=== PATIENT | male | born 1955 | race Caucasian/White ===

== ENCOUNTER 2016-06-11 06:20 | Day surgery (SDC) | payer BC ==
[2016-05-30 08:16] VITALS: BMI 32.5
[2016-06-11] MEDS ORDERED: IV FLUID CONTINUATION 900 ML IV ONE (07:52)
[2016-06-11] MEDS ORDERED: HEPARIN SODIUM (1,000 UNIT/ML) 1,000 UNIT in SODIUM CHLORIDE 0.9% 1,000 ML IRRIGATION ONE (08:10)
[2016-06-11] MEDS ORDERED: HEPARIN SODIUM,PORCINE 10,000 UNIT/ML 1 ML VIAL ONE (08:10)
[2016-06-11] MEDS ORDERED: HEPARIN SODIUM,PORCINE/D5W PMX 25,000 UNIT in DEXTROSE/WATER 1 500ML.BAG IV ONE (08:10)
[2016-06-11] MEDS ORDERED: fentaNYL (PF) 50 MCG/ML 2 ML AMP ONE (08:10)
[2016-06-11] MEDS ORDERED: FUROSEMIDE 10 MG/ML 2 ML VIAL ONE (08:10)
[2016-06-11] MEDS ORDERED: PROPOFOL 10 MG/ML 20 ML VIAL IV ONE (08:10)
[2016-06-11] MEDS ORDERED: ISOPROTERENOL 250 MCG/1.25 ML SYR IV ONE (08:10)
[2016-06-11] MEDS ORDERED: HEPARIN SODIUM,PORCINE 5,000 UNIT/ML 1 ML VIAL ONE (08:10)
[2016-06-11] MEDS ORDERED: PHENYLEPHRINE-0.9% NACL SYG 1 MG/10 ML SYRINGE ONE (08:10)
[2016-06-11] MEDS ORDERED: PROTAMINE SULFATE 10 MG/ML 5 ML VIAL IV ONE (08:10)
[2016-06-11] MEDS ORDERED: HEPARIN SODIUM 1,000 UNIT/ML VIAL ONE (08:10)
[2016-06-11] MEDS ORDERED: MIDAZOLAM 2 MG/2 ML VIAL ONE (08:10)
[2016-06-11] MEDS ORDERED: LIDOCAINE 2% INJ 20 MG/ML SQ ONE (08:46)
[2016-06-11] MEDS ORDERED: IOHEXOL 350 MG/ML 50ML BOTTLE INJ ONE (13:12)
[2016-06-11] MEDS ORDERED: SODIUM CHLORIDE 0.9% 1,000 ML IV ONE (13:18)
[2016-06-11] MEDS ORDERED: ACETAMINOPHEN TAB 325 MG TAB PO PRN (13:32)
[2016-06-11] MEDS ORDERED: HYDROcodone/APAP 5-325MG 1 EACH TAB PO PRN (13:32)
[2016-06-11] MEDS ORDERED: ACETAMINOPHEN IV (For NPO) 1,000 MG in EMPTY BAG 1 BAG IVPB ONE (13:32)
--- NOTE | 2016-06-11 14:10 | LTR ---
June 11, 2016 RE: Seven King Leann Dear Dr. Taylor; I had the pleasure of seeing Mr. Seven King in electrophysiology in followup. As you know, Seven has sustained ventricular tachycardia with severe cardiomyopathy. His LV function has now normalized but at EP study, despite amiodarone, he had easily inducible ventricular tachycardia. This was a focal VT from the lateral wall of the left ventricle and he underwent successful ablation and the tachycardia was rendered noninducible. I will continue amiodarone at 100 mg a day for a month and then reduce it down to 50 mg a day for 3 months and then discontinue amiodarone. This was a deep focus in the ventricular wall, but we were able to render it noninducible with ablation. Thank you for entrusting me with the care of your patient. Warm regards. Sincerely, KEIRA SHAH MD
--- NOTE | 2016-06-11 14:34 | CE ---
This is a 60-year-old male patient who was diagnosed with severe nonischemic cardiomyopathy several months back and he also presented with frequent runs of nonsustained ventricular tachycardia. His ejection fraction was 15% to 20%. He was started on oral amiodarone which is gradually being tapered off. He was placed on appropriate heart failure medications and coronary angiography revealed normal coronary arteries. Subsequently, a cardiac MRI was performed, which did not reveal any evidence for delayed enhancement. By the time he had the MRI done, his ejection fraction had already improved to about 40% to 45%. He was brought in for an EP study and ablation for ablation of ventricular tachycardia. Amiodarone dose was reduced down to 200 mg a day. Patient was brought to the EP lab in a fasting state. Written informed consent was obtained prior to the procedure. Both groins were prepped and draped as per protocol and a venous sheath was placed in the left femoral vein and 2 venous sheaths in the right femoral vein. Later on, an 8 [place] sheath was placed in the right femoral artery for continuous hemodynamic monitoring and sampling during mapping and ablation for VT. Sinus cycle length 998 ms, W[place] interval 194 ms, QRS 133 ms, QT 472 ms, AH interval 103 ms, HV interval 56 ms. Sinus node recovery times are 600, 500 and 400 ms, were 1040, 1449 and 1430 ms. Corresponding corrected sinus node recovery times were within normal limits. No evidence for delta waves. No slow pathway conduction. AV node Wenckebach block 490 ms. No VA conduction at a paced cycle length of 800 ms. Atrial extrastimulation was performed up to double extrastimuli. AV node ERP 600/380 ms, ventricular ERP 600/230 ms. Burst stimulation was performed. Extrastimulation up to double extrastimuli was performed, but only PVCs are noted. The patient had 2 spontaneous PVCs: One from the RVOT and the second was from the RV body; however, he had no spontaneous nonsustained VT. Isuprel was started and burst stimulation was performed. Sustained VT from the left ventricle was induced with burst stimulation at 230 ms on Isuprel. This is a right bundle block-like morphology; upright QRS in the precordial leads, upright QRS in all the inferior leads and negatively-oriented QRS in lead I and aVL consistent with lateral wall VT. Therefore, first intracardiac echocardiography was performed. The right ventricle was identified. The aortic root was identified and tagged. Anatomic 3-D mapping of the LV was performed. LV function was near normal at greater than 55% on intracardiac echo. A PentaRay catheter was first placed in the left ventricle retrograde and activation mapping of the ventricular tachycardia was performed. A broad area of early activation was noted along the lateral wall. Paced mapping was performed and the paced maps around the area were very suboptimal. Scar mapping revealed normal bipolar and normal unipolar voltage maps. Following that, the PentaRay catheter was removed and a mapping and ablation catheter was placed in the left ventricle. Detailed mapping was performed around the area of earliest activation and this area was very well circumscribed. This was a somewhat broad area of early activation, but along the anterior and the basal aspects, when the catheter was placed in the areas, VT was more difficult to induce. Finally in this area, a reasonably early site of activation with good unipolar maps was obtained; however, it was clear that this was a deep focus. Following this, RF ablation was performed and RF ablations were delivered at 30 to 35 shah with good contact force of between 15 and 40 g in this area and around it. The area was carefully circumscribed and transected with RF ablations. During the ablation, bursts of VT were induced and finally no further VT was induced. When the VT was induced, there was a gradual slowing of the VT. Following that, on high-dose Isuprel, burst stimulation was once again performed and no VT was induced. Please note that there was a second ventricular tachycardia that was induced with a completely different morphology with catheter manipulation, but was never induced with burst stimulation or extrastimulation. Patient continued to have his RV PVCs, which were not targeted. The other nonclinical VT was also not targeted at this point. RESULT: Diagnostic electrophysiology study revealin. Normal baseline measurements. 2. Normal sinus from function, Normal atrioventricular node function, No inducible supraventricular tachycardia and inducible sustained ventricular tachycardia, despite the use of amiodarone for several months, originating from the lateral wall of the left ventricle. This was a deep focus with poor paced maps and reasonable bipolar and unipolar electrograms. It was a somewhat broad area of activation and this area was ablated, well circumscribed and transected with radiofrequency lesions. The tachycardia was rendered noninducible. The patient tolerated the procedure well without any acute complications. All catheters were removed and patient was transferred back to telemetry. PLAN: Reduce amiodarone for 100 mg a day and thereafter. After about a month, we will reduce the dose further to 50 mg daily for 3 months and then discontinue amiodarone. No ICD indicated at this time because his LV function has normalized at this time. In followup, exercise stress testing will be used to determine inducibility of ventricular tachycardia and followup.
[2016-06-11] MEDS: SODIUM CHLORIDE 0.9% 1,000 ML IV SCH (17:25)
[2016-06-11] MEDS: LACTATED RINGERS 1,000 ML IV SCH (17:25)
[2016-06-11] MEDS: METOPROLOL TARTRATE 25 MG TAB PO SCH (20:37)
--- NOTE | 2016-06-12 07:52 | P.DS ---
Providers Attending physician: Blanco Kumar Primary care physician: Neel [facility] Course: Patient is doing well he denies any chest discomfort no pleuritic chest discomfort no cough phlegm no nausea or dizziness His groins of healed well he's been ambulating in the hallways Blood pressure 122/63 mmHg, he is afebrile 98.1F, pulse rate in the 60s normal respirations pulse ox 93% on room air Heart sounds are normal no rub no gallop No JVD Breath sounds are normal no rhonchi no crackles Abdomen is soft nontender Extremities are warm nontender no edema Groins of healed well no hematoma no swelling no tenderness Impression History of nonischemic cardio myopathy severe Progressive improvement in LV systolic function with medical treatment Normal coronary arteries No evidence for delayed enhancement on cardiac MRI Congestive heart failure improved Recurrent ventricular tachycardia Drug refractory VT originating from the lateral wall of the left ventricle This was a deep focus, somewhat broad area of activation, poor pace maps RF ablation at that site resulted in noninducibility at the end of the procedure Suggest Reduce amiodarone 100 mg a day for one month Thereafter 50 mg for 3 months and then stop Exercise stress test as an outpatient after 6 weeks to look for any exercise- related inducibility of VT LV function has normalized. Intracardiac echo revealed normal LV function Continue all other heart failure/cardio myopathy medications and he may go home today at around 10 AM after ambulating for the next 1-2 hours Plan - Discharge Summary Discharge Medication List Multivitamin [Men's Multi-Vitamin] 1 tab PO DAILY 12/03/15 [History] Aspirin EC [Ecotrin Low Dose] 81 mg PO DAILY #30 tablet. 12/06/15 [Rx] Lisinopril [Zestril] 5 mg PO DAILY #30 tab 12/06/15 [Rx] Spironolactone [Aldactone] 25 mg PO DAILY #30 tab 12/06/15 [Rx] Atorvastatin [Lipitor] 40 mg PO DAILY 05/30/16 [History] Furosemide [Lasix] 40 mg PO DAILY 05/30/16 [History] Metoprolol Tartrate [Lopressor] 25 mg PO BID 05/30/16 [History] Amiodarone [Cordarone] 100 mg PO BID #90 06/11/16 [Rx] Activity/Diet/Wound Care/Special Instructions: Post EP study - Ablation instructions 1. Keep access sites dry for 2 days. 2. No heavy lifting or straining for 2 days. 3. Avoid bending the hips repeatedly for 2 days. 4. You may go up and down stairs slowly Call if the following is noted 1. Bleeding, increasing swelling or pain at the access sites. 2. Increasing chest discomfort, especially upon taking a deep breath. 3. Increasing shortness of breath, at rest or with exertion. 4. Undue cough / phlegm 5. Difficulty or pain while swallowing. 6. Pain or change in color in the extremities. 7. Fever, chills, rigors. 8. Increasing headache or neurologic symptoms. 9. Dizziness, fainting, palpitations
[2016-06-12 08:18] VITALS: BP 118/67; PULSE 69; RESP 18; TEMP 97.4
[2016-06-12] MEDS: METOPROLOL TARTRATE 25 MG TAB PO SCH (08:21)
[2016-06-12] MEDS: LACTATED RINGERS 1,000 ML IV SCH (08:26)
[2016-06-12] MEDS: SODIUM CHLORIDE 0.9% 1,000 ML IV SCH (08:27)
[2016-06-12] MEDS ORDERED: SPIRONOLACTONE 25 MG TAB PO SCH (09:00)
[2016-06-12] MEDS ORDERED: FUROSEMIDE 40 MG TAB PO SCH (09:00)
[2016-06-12] MEDS ORDERED: LISINOPRIL 5 MG TAB PO SCH (09:00)
[2016-06-12] MEDS ORDERED: ATORVASTATIN 40 MG TAB PO SCH (09:00)
[2016-06-12] MEDS ORDERED: ASPIRIN 81 MG CHEW PO SCH (09:00)
== END 2016-06-12 10:25 | disposition home or self-care (01) ==
LOC: CATHEP 06:20 → 3OBS 13:10 → CATHEP 06-12 10:25
PROVIDERS: ATTEND Internal Medicine Clinical Cardiac Electrophysiology
DX: I47.2 Ventricular tachycardia (principal); I42.9 Cardiomyopathy, unspecified; I50.9 Heart failure, unspecified; E78.5 Hyperlipidemia, unspecified; I10 Essential (primary) hypertension; I20.9 Angina pectoris, unspecified; Z79.899 Other long term (current) drug therapy; Z87.891 Personal history of nicotine dependence
CPT/HCPCS: 93623; 93662; 93654; 85347; C1894 ×2; C1769 ×3; C1730 ×2; C1731; C1759; C1732; J2001; J2250; J2720; J1644 ×4; J1940; J3010; J2370; J2704; Q9967

== ENCOUNTER → 2016-10-17 | Outpatient (CLI) | payer BC ==
[2016-10-17 10:48] LABS: CH 28.6; CHCM 33.5; HCT 44.2 % (39.0-53.0); HDW 2.65; HGB 14.6 gm/dL (13.0-17.5); MCH 28.4 pg (25.0-35.0); MCHC 33.1 g/dL (31.0-37.0); MCV 85.7 fL (80.0-100.0); Mean Platelet Volume 6.8; RBC 5.16 m/uL (4.30-5.90); WBC 8.9 k/uL (3.8-10.6)
[2016-10-17 10:53] LABS: Anion Gap 14 mmol/L; Blood Urea Nitrogen 16 mg/dL (9-20); Carbon Dioxide 28 mmol/L (22-30); Chloride 97 mmol/L (98-107); Non-African American GFR(MDRD) >60 (>60 ml/min/1.73 sqM); Potassium 4.4 mmol/L (3.5-5.1); Sodium 139 mmol/L (137-145)
== END | disposition home or self-care (01) ==
LOC: LABWHC1 10:13
PROVIDERS: ATTEND Internal Medicine Cardiovascular Disease
DX: I47.2 Ventricular tachycardia (principal)
CPT/HCPCS: 36415; 80051; 82565; 84443; 84520; 85027

== ENCOUNTER 2017-07-03 09:51 | Day surgery (SDC) | payer BC ==
[2017-07-02 08:32] VITALS: BMI 32.5
[~2017-07-03 09:51] MED LIST: DEXAMETHASONE SOD PHOSPHATE 10 MG/ML 1 ML VIAL IV ONE; HYDROmorphone 0.5 MG/0.5 ML SYRINGE IVP PRN; LACTATED RINGERS 1,000 ML IV SCH; LIDOCAINE 1% 20 ML VIAL (10MG/ML) FOR IV START INTRADERMA PRN; MIDAZOLAM 2 MG/2 ML VIAL IV PRN; ONDANSETRON 4 MG/2 ML VIAL IVP ONE; SCOPOLAMINE 1.5MG/72HR PATCH TRANSDERM ONE
[2017-07-03 10:21] VITALS: RESP 16; TEMP 97.4
[2017-07-03 10:31] LABS: Glucose,Whole Blood 143 mg/dL (75-99)
[2017-07-03] MEDS ORDERED: LIDOCAINE 1% INJ 10MG/ML (20 ML MDV) ONE (11:29)
[2017-07-03] MEDS ORDERED: PROPOFOL 10 MG/ML 20 ML VIAL IV ONE (11:29)
--- NOTE | 2017-07-03 12:22 | P.PCN ---
Date of Procedure: 07/03/17 Procedure(s) Performed: Procedure: Colonoscopy and polypectomy. Preoperative diagnosis: Screening for neoplasia, patient has history of polyps. Postoperative diagnosis: Multiple polyps snared but no large polyps or cancer. Preparation: HalfLytely prep. Sedation: Was provided by anesthesia. Brief clinical history: The patient is a 61-year-old male who is scheduled for this evaluation because of history of polyps. He has no abdominal complaints, bleeding or anemia. Procedure: With the patient on his left lateral decubitus position and after informed consent and adequate sedation, the perianal area was inspected and it did not show any fissures or fistulas. There were no masses felt on digital rectal examination. The Olympus CFQ 160L video colonoscope was then inserted in the rectum in the usual fashion and advanced to the cecum. There were couple small polyps in the right colon which were snared and retrieved by suction and there were 3 polyps in the sigmoid which were snared and retrieved by suction but there were no large polyps or cancer. The mucosa appeared healthy. I retroflexed the endoscope in the rectum before the endoscope was withdrawn. The patient tolerated the procedure well. Plan: The patient was reassured. Will await pathology results. I anticipate repeating this exam in 3-5 years.he will follow up with you as planned.
[2017-07-03 12:30] VITALS: BP 111/77; PULSE 73
== END 2017-07-03 12:43 | disposition home or self-care (01) ==
LOC: ORWHC2ENDO 09:51
DX: D12.2 Benign neoplasm of ascending colon (principal); D12.5 Benign neoplasm of sigmoid colon; Z12.11 Encounter for screening for malignant neoplasm of colon; Z86.010 Personal history of colon polyps; E11.9 Type 2 diabetes mellitus without complications; Z79.84 Long term (current) use of oral hypoglycemic drugs; E78.5 Hyperlipidemia, unspecified; I25.10 Atherosclerotic heart disease of native coronary artery without angina pectoris; I11.0 Hypertensive heart disease with heart failure; I50.9 Heart failure, unspecified; Z98.61 Coronary angioplasty status; Z79.82 Long term (current) use of aspirin; M19.90 Unspecified osteoarthritis, unspecified site; Z79.899 Other long term (current) drug therapy
CPT/HCPCS: 88305; 45385; J2001; J2704

== ENCOUNTER → 2018-02-04 | Outpatient (CLI) | payer BC ==
[2018-02-04 14:45] LABS: T4, Free (Free Thyroxine) 2.04 ng/dL (0.78-2.19)
== END | disposition home or self-care (01) ==
LOC: LABWHC1 13:55
PROVIDERS: ATTEND Internal Medicine Endocrinology, Diabetes & Metabolism
DX: E05.90 Thyrotoxicosis, unspecified without thyrotoxic crisis or storm (principal)
CPT/HCPCS: 36415; 84439; 84443; 84480

== ENCOUNTER → 2018-04-21 | Outpatient (CLI) | payer BC ==
[2018-04-21 17:32] LABS: T4, Free (Free Thyroxine) 1.3 ng/dL (0.80-1.80)
== END | disposition home or self-care (01) ==
LOC: LABWHC1 09:14
PROVIDERS: ATTEND Internal Medicine Endocrinology, Diabetes & Metabolism
DX: E05.90 Thyrotoxicosis, unspecified without thyrotoxic crisis or storm (principal)
CPT/HCPCS: 36415; 84439; 84443; 84480

== ENCOUNTER → 2018-05-11 | Outpatient (CLI) | payer MEDICARE ==
[2018-05-12 03:55] LABS: Anion Gap 12.2 mmol/L (4.00-12.00); Carbon Dioxide 25.8 mmol/L (21.6-31.8); Potassium 4.2 mmol/L (3.5-5.5)
== END | disposition home or self-care (01) ==
LOC: LABWHC1 15:26
PROVIDERS: ATTEND Internal Medicine Cardiovascular Disease
DX: I42.0 Dilated cardiomyopathy (principal)
CPT/HCPCS: 36415; 80051; 82565; 84450; 84460; 84520

== ENCOUNTER → 2018-10-13 | Outpatient (CLI) | payer MEDICARE ==
[2018-10-13 16:42] LABS: T4, Free (Free Thyroxine) 1.1 ng/dL (0.80-1.80)
== END | disposition home or self-care (01) ==
LOC: LABWHC1 09:02
PROVIDERS: ATTEND Internal Medicine Endocrinology, Diabetes & Metabolism
DX: E05.90 Thyrotoxicosis, unspecified without thyrotoxic crisis or storm (principal)
CPT/HCPCS: 36415; 84439; 84443; 84480

== ENCOUNTER → 2019-05-25 | Outpatient (CLI) | payer MEDICARE ==
[2019-05-25 15:38] LABS: HCT 47.7 % (39.0-53.0); HGB 15.6 gm/dL (13.0-17.5); MCHC 32.7 g/dL (31.0-37.0); MCV 85.5 fL (80.0-100.0); Mean Platelet Volume 6.9; Platelet Count 402 k/uL (150-450); RBC 5.57 m/uL (4.30-5.90); WBC 12.1 k/uL (3.8-10.6)
[2019-05-25 15:47] LABS: African American GFR (CKD) >90 (>60 ml/min/1.73 sqM); Anion Gap 13 mmol/L; Blood Urea Nitrogen 22 mg/dL (9-20); Carbon Dioxide 26 mmol/L (22-30); Chloride 101 mmol/L (98-107); Non-African American GFR(CKD) >90 (>60 ml/min/1.73 sqM); Potassium 4.4 mmol/L (3.5-5.1); Sodium 140 mmol/L (137-145)
== END | disposition home or self-care (01) ==
LOC: LABPAT 14:57
PROVIDERS: ATTEND Internal Medicine Cardiovascular Disease
DX: Z01.812 Encounter for preprocedural laboratory examination (principal); R07.2 Precordial pain
CPT/HCPCS: 36415; 80051; 82565; 84520; 85027

== ENCOUNTER 2019-05-27 05:44 | Day surgery (SDC) | payer MEDICARE ==
[2019-05-26 09:14] VITALS: BMI 29.7
[2019-05-27] MEDS ORDERED: NITROGLYCERIN SL TABS 0.4 MG TAB SUBLINGUAL PRN (06:00)
[2019-05-27] MEDS ORDERED: ALPRAZolam 0.5 MG TAB PO PRN (06:00)
[2019-05-27] MEDS ORDERED: ATORVASTATIN 80 MG TAB PO STA (06:00)
[2019-05-27] MEDS ORDERED: ALPRAZolam 0.25 MG TAB PO PRN (06:00)
[2019-05-27] MEDS ORDERED: ASPIRIN 325 MG TAB PO STA (06:00)
[2019-05-27] MEDS ORDERED: SODIUM CHLORIDE 0.9% 1,000 ML in EMPTY BAG 1 BAG IV ONE (06:00)
[2019-05-27 06:40] LABS: Glucose,Whole Blood 108 mg/dL (75-99)
[2019-05-27 06:49] VITALS: RESP 16; TEMP 97.7
[2019-05-27 06:49] LABS: Basophils # (A) 0.1 k/uL (0-0.2); Basophils % (A) 1 %; Eosinophils # (A) 0.3 k/uL (0-0.7); Eosinophils % (A) 3 %; HCT 45.9 % (39.0-53.0); HGB 15.3 gm/dL (13.0-17.5); Lymphocytes # (A) 2.7 k/uL (1.0-4.8); Lymphocytes % (A) 27 %; MCH 28.4 pg (25.0-35.0); MCHC 33.4 g/dL (31.0-37.0); MCV 85.2 fL (80.0-100.0); Monocytes # (A) 0.5 k/uL (0-1.0); Monocytes % (A) 5 %; Neutrophils # (A) 6.3 k/uL (1.3-7.7); Neutrophils % (A) 63 %; Platelet Count 381 k/uL (150-450); RBC 5.39 m/uL (4.30-5.90); RDW 13.2 % (11.5-15.5)
[2019-05-27] MEDS ORDERED: SODIUM CHLORIDE 0.9% 1,000 ML IV ONE (06:49)
[2019-05-27] MEDS ORDERED: MIDAZOLAM 2 MG/2 ML VIAL IV ONE (07:33)
[2019-05-27] MEDS ORDERED: LIDOCAINE 1% INJ 10MG/ML (20 ML MDV) ONE (07:34)
[2019-05-27] MEDS ORDERED: LIDOCAINE 1% INJ 10MG/ML (20 ML MDV) SQ ONE (07:36)
[2019-05-27] MEDS ORDERED: fentaNYL (PF) 50 MCG/ML 2 ML AMP IV ONE (07:37)
[2019-05-27] MEDS ORDERED: fentaNYL (PF) 50 MCG/ML 2 ML AMP ONE (07:37)
[2019-05-27] MEDS ORDERED: IOPAMIDOL-370 125ML BTL INJ ONE (07:49)
[2019-05-27] MEDS ORDERED: RX INFO: IV CONTRAST WAS GIVEN 1 EACH MISC MISCELLANE PRN (07:56)
--- NOTE | 2019-05-27 08:18 | CC ---
CARDIAC CATHETERIZATION REPORT INDICATION: Chest pain with abnormal stress test. PROCEDURE NOTE: After obtaining informed consent, left heart catheterization and coronary angiogram are performed via the right femoral artery using standard Alistair catheters. The patient tolerated the procedure well without any obvious immediate complications. A femoral angiogram was performed and Angio-Seal was deployed for hemostasis. Patient received moderate conscious sedation and total sedation time was 20 minute. FINDINGS: 1. HEMODYNAMICS: Left ventricular end-diastolic pressure is 20 mm. There is no significant gradient across the aortic valve. 2. LEFT VENTRICULOGRAM: Left ventriculogram is not performed. 3. ANGIOGRAPHIC DATA: Left Main Coronary Artery: Left main coronary artery is a normal-sized vessel and is free of stenosis. Divides into left anterior descending coronary artery and circumflex coronary artery. LAD and its branches show mild nonobstructive coronary artery disease. Circumflex coronary artery is a small nondominant vessel and it shows mild nonobstructive CAD. Right coronary artery is a large dominant vessel and is free of significant stenosis. CONCLUSIONS: Mild nonobstructive coronary artery disease. PLAN: Patient's stress test is a false positive stress test and the chest discomfort is probably noncardiac in origin. His management is going to be with continued medical therapy. The patient is on metformin for diabetes, which he is going to hold for 48 hours. He has been instructed on this. MMODL / IJN: [id number] /
--- NOTE | 2019-05-27 08:24 | LTR ---
May 27, 2019 Re: Seven Christine Dear Dr. Taylor: I performed cardiac catheterization on Seven King. A detailed catheterization note is enclosed for your records. In brief, the cardiac catheterization shows mild nonobstructive coronary artery disease. The patient's chest pain is noncardiac in origin and stress test is a false positive stress test. Thank you for giving me the privilege to participate in the care of this pleasant gentleman. Sincerely, MD ALEM Coleman / JOE: [id number] /
[2019-05-27 12:52] VITALS: BP 104/66; PULSE 70
== END 2019-05-27 13:08 | disposition home or self-care (01) ==
LOC: CATHCVL 05:44
PROVIDERS: ATTEND Internal Medicine Cardiovascular Disease
DX: I25.110 Atherosclerotic heart disease of native coronary artery with unstable angina pectoris (principal); I47.2 Ventricular tachycardia; I42.0 Dilated cardiomyopathy; E78.5 Hyperlipidemia, unspecified; F17.210 Nicotine dependence, cigarettes, uncomplicated; Z79.82 Long term (current) use of aspirin; Z79.84 Long term (current) use of oral hypoglycemic drugs; Z79.899 Other long term (current) drug therapy
CPT/HCPCS: 93458; 85025; C1769 ×2; C1760; C1894; J2250; J2001; J3010; Q9967

== ENCOUNTER 2020-02-23 15:18 | Observation (INO) | payer MEDICARE ==
[2020-02-23] MEDS ORDERED: SODIUM CHLORIDE 0.9% 1,000 ML IV STA (15:53)
[2020-02-23] MEDS ORDERED: NITROGLYCERIN OINT 1 INCH/GM PACKET TOPICAL STA (15:53)
[2020-02-23] MEDS ORDERED: ASPIRIN 81 MG PO STA (15:53)
--- NOTE | 2020-02-23 15:57 | ED ---
General Adult HPI - General Chief complaint: Chest Pain Stated complaint: chest pain Time Seen by Provider: 02/23/20 15:31 Source: patient, family, RN notes reviewed Mode of arrival: ambulatory Limitations: no limitations - History of Present Illness Initial comments: Patient is a pleasant 64-year-old male presenting to the emergency department telling syncopal episode. Patient was driving the vehicle and passed out for just a second. Patient was lightheaded and maybe nauseated prior to the episode. Patient is still mildly nauseated. Patient has had some chest discomfort. Discomfort was 8/10 however is improved and now to 4/10. Patient does have mild associated dyspnea. Patient was sweaty earlier. Patient did have some similar chest discomfort years ago associated with cardiac ablation, not a heart attack. No headache or confusion or weakness. - Related Data Home Medications Medication Instructions Recorded Confirmed Multivitamin [Men's Multi-Vitamin] 1 tab PO DAILY 12/03/15 02/23/20 Furosemide [Lasix] 20 mg PO DAILY 05/30/16 02/23/20 Metoprolol Tartrate [Lopressor] 25 mg PO BID 05/30/16 02/23/20 Dapagliflozin Propanediol [Farxiga] 5 mg PO DAILY 05/05/19 02/23/20 lisinopriL [Zestril] 5 mg PO DAILY 05/05/19 02/23/20 Ascorbic Acid [Vitamin C] 1,000 mg PO DAILY 02/23/20 02/23/20 Atorvastatin [Lipitor] 20 mg PO DAILY 02/23/20 02/23/20 Sertraline [Zoloft] 100 mg PO DAILY 02/23/20 02/23/20 metFORMIN HCL 1,000 mg PO BID 02/23/20 02/23/20 Previous Rx's Medication Instructions Recorded Aspirin EC [Ecotrin Low Dose] 81 mg PO DAILY #30 tablet. 12/06/15 Spironolactone [Aldactone] 25 mg PO DAILY #30 tab 12/06/15 Allergies Allergy/AdvReac Type Severity Reaction Status Date / Time bee venom protein (honey bee) Allergy Swelling Verified 02/23/20 16:28 Review of Systems ROS Statement: Those systems with pertinent positive or pertinent negative responses have been documented in the HPI. ROS Other: All systems not noted in ROS Statement are negative. Constitutional: Denies: fever Eyes: Denies: eye pain ENT: Denies: ear pain Respiratory: Reports: as per HPI. Denies: cough Cardiovascular: Reports: as per HPI, chest pain Endocrine: Denies: fatigue Gastrointestinal: Reports: as per HPI, nausea. Denies: abdominal pain Genitourinary: Denies: dysuria Musculoskeletal: Denies: back pain Skin: Denies: rash Neurological: Denies: weakness Past Medical History Past Medical History: Chest Pain / Angina, Heart Failure, Diabetes Mellitus, Hyperlipidemia, Hypertension, Osteoarthritis (OA) Additional Past Medical History / Comment(s): anemia, irregular heart rate. History of Any Multi-Drug Resistant Organisms: None Reported Past Surgical History: Cardiac Ablation, Heart Catheterization, Hernia Repair, Orthopedic Surgery Additional Past Surgical History / Comment(s): Rt knee -bursa removed, ernesto cataracts, COLONOSCOPY Past Anesthesia/Blood Transfusion Reactions: No Reported Reaction Past Psychological History: No Psychological Hx Reported Smoking Status: Former smoker Past Alcohol Use History: None Reported Past Drug Use History: None Reported - Past Family History Father Family Medical History: Deep Vein Thrombosis (DVT) Additional Family Medical History / Comment(s): . Mother Family Medical History: Eye Disorder Additional Family Medical History / Comment(s): Macular degeneration. Mother is 80 yrs old. General Exam Limitations: no limitations General appearance: alert, in no apparent distress Head exam: Present: normocephalic Eye exam: Present: normal appearance, PERRL ENT exam: Present: normal oropharynx Neck exam: Present: normal inspection Respiratory exam: Present: normal lung sounds bilaterally. Absent: chest wall tenderness Cardiovascular Exam: Present: regular rate, normal rhythm Expanded Peripheral pulses: 2+: Radial (R), Radial (L), Dorsalis Pedis (R), Dorsalis Pedis (L) GI/Abdominal exam: Present: soft. Absent: distended, tenderness, pulsatile mass Extremities exam: Present: normal inspection. Absent: pedal edema, calf tend erness Neurological exam: Present: alert, oriented X3, CN II-XII intact. Absent: motor sensory deficit Expanded Neurological exam: Present: protecting the airway Patient oriented to: Present: person, place, time Speech: Present: fluid speech Cranial nerves: EOM's Intact: Normal Motor strength exam: RUE: 5, LUE: 5, RLE: 5, LLE: 5 Eye Response: (4) open spontaneously Motor Response: (6) obeys commands Verbal Response: (5) oriented Psychiatric exam: Present: normal affect, normal mood Skin exam: Present: normal color Course Vital Signs 02/23/20 15:21 Temperature 97.4 F L Pulse Rate 97 Respiratory 16 Rate Blood Pressure 130/68 O2 Sat by Pulse 99 Oximetry EKG Findings - EKG Comments: EKG Findings:: Sinus rhythm and 91. MA 186. QRS 90. QT 338. QTC 4:15. Left axis. Septal Q waves. PVCs present. No acute ST change. Medical Decision Making - Medical Decision Making Patient reevaluated and resting comfortably in bed. No discomfort at this time. Patient and family updated on results and plan. Case was discussed in detail with Dr. Bach, who will admit covering for hospital call. - Lab Data Result diagrams: 02/23/20 16:18 02/23/20 16:18 Lab Results 02/23/20 02/23/20 02/23/20 Range/Units 16:18 16:18 16:18 WBC 10.8 H (3.8-10.6) k/uL RBC 5.73 (4.30-5.90) m/uL Hgb 15.5 (13.0-17.5) gm/dL Hct 47.2 (39.0-53.0) % MCV 82.4 (80.0-100.0) fL MCH 27.0 (25.0-35.0) pg MCHC 32.7 (31.0-37.0) g/dL RDW 13.3 (11.5-15.5) % Plt Count 386 (150-450) k/uL Neutrophils % 74 % Lymphocytes % 17 % Monocytes % 6 % Eosinophils % 1 % Basophils % 0 % Neutrophils # 8.0 H (1.3-7.7) k/uL Lymphocytes # 1.9 (1.0-4.8) k/uL Monocytes # 0.7 (0-1.0) k/uL Eosinophils # 0.1 (0-0.7) k/uL Basophils # 0.0 (0-0.2) k/uL PT 9.7 (9.0-12.0) sec INR 0.9 (<1.2) APTT 23.3 (22.0-30.0) sec Sodium 140 (137-145) mmol/L Potassium 4.2 (3.5-5.1) mmol/L Chloride 105 (98-107) mmol/L Carbon Dioxide 22 (22-30) mmol/L Anion Gap 13 mmol/L BUN 19 (9-20) mg/dL Creatinine 0.72 (0.66-1.25) mg/dL Est GFR (CKD-EPI)AfAm >90 (>60 ml/min/1.73 sqM) Est GFR (CKD-EPI)NonAf >90 (>60 ml/min/1.73 sqM) Glucose 89 (74-99) mg/dL Calcium 9.9 (8.4-10.2) mg/dL Magnesium 2.0 (1.6-2.3) mg/dL Total Bilirubin 0.4 (0.2-1.3) mg/dL AST 30 (17-59) U/L ALT 30 (4-49) U/L Alkaline Phosphatase 61 (38-126) U/L Troponin I (0.000-0.034) ng/mL Total Protein 6.8 (6.3-8.2) g/dL Albumin 4.5 (3.5-5.0) g/dL 02/23/20 Range/Units 16:18 WBC (3.8-10.6) k/uL RBC (4.30-5.90) m/uL Hgb (13.0-17.5) gm/dL Hct (39.0-53.0) % MCV (80.0-100.0) fL MCH (25.0-35.0) pg MCHC (31.0-37.0) g/dL RDW (11.5-15.5) % Plt Count (150-450) k/uL Neutrophils % % Lymphocytes % % Monocytes % % Eosinophils % % Basophils % % Neutrophils # (1.3-7.7) k/uL Lymphocytes # (1.0-4.8) k/uL Monocytes # (0-1.0) k/uL Eosinophils # (0-0.7) k/uL Basophils # (0-0.2) k/uL PT (9.0-12.0) sec INR (<1.2) APTT (22.0-30.0) sec Sodium (137-145) mmol/L Potassium (3.5-5.1) mmol/L Chloride (98-107) mmol/L Carbon Dioxide (22-30) mmol/L Anion Gap mmol/L BUN (9-20) mg/dL Creatinine (0.66-1.25) mg/dL Est GFR (CKD-EPI)AfAm (>60 ml/min/1.73 sqM) Est GFR (CKD-EPI)NonAf (>60 ml/min/1.73 sqM) Glucose (74-99) mg/dL Calcium (8.4-10.2) mg/dL Magnesium (1.6-2.3) mg/dL Total Bilirubin (0.2-1.3) mg/dL AST (17-59) U/L ALT (4-49) U/L Alkaline Phosphatase (38-126) U/L Troponin I <0.012 (0.000-0.034) ng/mL Total Protein (6.3-8.2) g/dL Albumin (3.5-5.0) g/dL - Radiology Data Radiology results: report reviewed (Computed tomography scan of the chest negative for pulmonary embolism) Disposition Clinical Impression: Chest pain, Syncope Disposition: ADMITTED IP TO THIS HOSP Is patient prescribed a controlled substance at d/c from ED?: No Referrals: Neel Taylor DO [Primary Care Provider] - 1-2 days Decision Time: 17:51
[2020-02-23 16:40] LABS: ALT 30 U/L (4-49); AST 30 U/L (17-59); African American GFR (CKD) >90 (>60 ml/min/1.73 sqM); Albumin 4.5 g/dL (3.5-5.0); Alkaline Phosphatase 61 U/L (38-126); Anion Gap 13 mmol/L; Blood Urea Nitrogen 19 mg/dL (9-20); Calcium 9.9 mg/dL (8.4-10.2); Carbon Dioxide 22 mmol/L (22-30); Chloride 105 mmol/L (98-107); Glucose 89 mg/dL (74-99); Non-African American GFR(CKD) >90 (>60 ml/min/1.73 sqM); Potassium 4.2 mmol/L (3.5-5.1); Sodium 140 mmol/L (137-145); Total Bilirubin 0.4 mg/dL (0.2-1.3); Total Protein 6.8 g/dL (6.3-8.2)
[2020-02-23 16:42] LABS: INR 0.9 (<1.2); Partial Thromboplastin Time 23.3 sec (22.0-30.0); Prothrombin Time 9.7 sec (9.0-12.0)
[2020-02-23 16:47] LABS: Basophils % (A) 0 %; Eosinophils # (A) 0.1 k/uL (0-0.7); Eosinophils % (A) 1 %; HCT 47.2 % (39.0-53.0); HGB 15.5 gm/dL (13.0-17.5); Lymphocytes # (A) 1.9 k/uL (1.0-4.8); Lymphocytes % (A) 17 %; MCHC 32.7 g/dL (31.0-37.0); MCV 82.4 fL (80.0-100.0); Mean Platelet Volume 6.9; Monocytes # (A) 0.7 k/uL (0-1.0); Monocytes % (A) 6 %; Neutrophils % (A) 74 %; Platelet Count 386 k/uL (150-450); RBC 5.73 m/uL (4.30-5.90); RDW 13.3 % (11.5-15.5); WBC 10.8 k/uL (3.8-10.6)
--- NOTE | 2020-02-23 17:39 | CT ---
EXAMINATION TYPE: CT angio chest DATE OF EXAM: 02/23/2020 COMPARISON: 12/08/2015 HISTORY: Chest pains, passed out CT DLP: 549.9 mGycm Automated exposure control for dose reduction was used. CONTRAST: Performed with IV Contrast, patient injected with 100 mL of Isovue 370. There are 3-D post processed images. There is some mild atelectasis right posterior lung base. There is no evidence of a pulmonary mass. T here is no pleural effusion. Heart size is normal. There is no pericardial effusion. There is no mediastinal adenopathy. There are no hilar masses. There is normal contrast opacification of the pulmonary arteries. There are no filling defects. Thoracic aorta is intact. There is no sign of aneurysm or dissection. The bony thorax is intact. There is hypertrophic spurring throughout the t horacic spine. There is no compression fracture. IMPRESSION: No evidence of pulmonary embolism. Minimal atelectasis right lung base. There is improved aeration of the lung bases compared to old exam.
[2020-02-23] MEDS ORDERED: NITROGLYCERIN SL TABS 0.4 MG TAB SUBLINGUAL PRN (17:51)
[2020-02-23] MEDS ORDERED: ALPRAZolam 0.25 MG TAB PO PRN (18:15)
[2020-02-23] MEDS ORDERED: TEMAZEPAM 15 MG CAP PO PRN (18:15)
[2020-02-23] MEDS ORDERED: HYDROcodone/APAP 5-325MG 1 EACH TAB PO PRN (18:15)
[2020-02-23] MEDS ORDERED: HYDROmorphone 0.5 MG/0.5 ML SYRINGE IVP PRN (18:15)
--- NOTE | 2020-02-23 19:47 | HP ---
HISTORY AND PHYSICAL DATE OF SERVICE: 02/23/2020 CHIEF COMPLAINTS: Chest pain and syncope. HISTORY OF PRESENT ILLNESS: This 64-year-old gentleman with a past medical history of multiple medical problems, including chest pain, history of CHF, history of diabetes mellitus, hypertension, hyperlipidemia, history of cardiac ablation, being followed by Dr. Taylor and Dr. Vazquez in the outpatient setting, [place] and suddenly his noticed that the patient was in the wrong aleah; the patient apparently had a brief period of syncopal episode. The patient also reported having chest pain which was mild to moderate in intensity 8 to 10 intensity, which was heavy in character, felt across the chest without any radiation prior to that. The patient was taken to [facility], where the patient was complaining of some mild chest pains. Initial troponins were negative. The patient was admitted for further evaluation and treatment. The initial EKG showed QS complexes indicating old myocardial infarction and some PVCs, also. There is no history of any fever, rigor or chills. No history of headache. No history of seizures at this time. PAST MEDICAL HISTORY: History of chest pain, history of CHF, diabetes mellitus, hypertension, hyperlipidemia, history of cardiac ablation. HOME MEDICATIONS: 1. Metformin 1000 mg p.o. b.i.d. 2. Zestril 5 mg p.o. daily. 3. Aldactone 25 mg daily. 4. Zoloft 100 mg p.o. daily. 5. Multivitamins 1 p.o. daily. 6. Lopressor 25 mg b.i.d. 7. Lasix 20 mg p.o. daily. 8. Farxiga 5 mg p.o. daily. 9. Lipitor 20 mg p.o. daily. 10.Ecotrin 81 mg p.o. daily. 11.Vitamin C 1000 mg p.o. daily. ALLERGIES: BEE VENOM. FAMILY HISTORY: History of DVT in the family. SOCIAL HISTORY: Previous history of smoking. No current smoking or alcohol intake. REVIEW OF SYSTEMS: ENT: No diminished hearing. No diminished vision. CARDIOVASCULAR SYSTEM: As mentioned earlier. RESPIRATORY SYSTEM: No cough, hemoptysis. GI: No nausea, vomiting. : No dysuria or retention. NERVOUS SYSTEM: No numbness, weakness. ALLERGY/IMMUNOLOGY: No asthma, hayfever. MUSCULOSKELETAL: As mentioned earlier. HEMATOLOGY/ONCOLOGY: No history of anemia. ENDOCRINE: History of diabetes. CONSTITUTIONAL: As mentioned earlier. DERMATOLOGY: Negative. RHEUMATOLOGY: Negative. PSYCHIATRY: As mentioned earlier. PHYSICAL EXAMINATION: Patient alert and oriented x3. Pulse is 86, blood pressure 120/71, respiration 18, temperature 97.4, pulse ox 100% on nasal cannula. HEENT: Conjunctivae normal. Oral mucosa moist. NECK: No jugular venous distention. No carotid bruit. No lymph node enlargement. CARDIOVASCULAR SYSTEM: S1, S2 muffled. No S3. No S4. RESPIRATORY SYSTEM: Breath sounds diminished at the bases. No rhonchi. No crackles. ABDOMEN: Soft, non-tender. No mass palpable. LEGS: No edema. No swelling. NERVOUS SYSTEM: Higher functions as mentioned earlier. Moves all 4 limbs. No focal motor or sensory deficit. LYMPHATICS: No lymph node palpable in neck, axillae or groin. JOINTS: No active deforming arthropathy. LABS: Labs at this time show WBC 10.8, hemoglobin 15.5, sodium 140, potassium 4.2. ASSESSMENT: 1. Chest pain, possible unstable angina. 2. Syncope, possibly cardiogenic. 3. History of congestive heart failure. 4. Diabetes mellitus, type 2. 5. Hypertension. 6. Hyperlipidemia. 7. History of degenerative joint disease. 8. History of cardiac ablation. 9. Remote history of nicotine dependence. 10.FULL CODE. RECOMMENDATIONS AND DISCUSSION: In this 64-year-old gentleman who presented with multiple medical issues, we will monitor the patient closely. Follow the unstable angina protocol. Cardiology consultation. Rule out myocardial infarction. I also recommend a 2D echo with Doppler. I would also recommend D-dimer; if it is elevated, consider CT angio of the chest. Prognosis guarded. Further recommendations to follow. A copy of this dictation is being forwarded to Dr. Taylor, who is the primary physician. MMODL / IJN: [id number] /
[2020-02-23 21:32] LABS: Glucose,Whole Blood 139 mg/dL (75-99)
[2020-02-23] MEDS: METOPROLOL TARTRATE 25 MG TAB PO SCH (21:32)
[2020-02-23] MEDS: metFORMIN 500 MG TAB PO SCH (21:32)
[2020-02-24] MEDS: NITROGLYCERIN OINT 1 INCH/GM PACKET TOPICAL SCH ×2 (05:26→06:34)
[2020-02-24 06:36] LABS: Glucose,Whole Blood 114 mg/dL (75-99)
[2020-02-24] MEDS: PANTOPRAZOLE 40 MG TABLET PO SCH (06:36)
[2020-02-24 07:45] LABS: Basophils % (A) 0 %; Eosinophils # (A) 0.2 k/uL (0-0.7); Eosinophils % (A) 2 %; HCT 42.2 % (39.0-53.0); HGB 13.1 gm/dL (13.0-17.5); Lymphocytes % (A) 21 %; MCH 26.1 pg (25.0-35.0); MCHC 31.1 g/dL (31.0-37.0); MCV 83.8 fL (80.0-100.0); Mean Platelet Volume 6.7; Monocytes # (A) 0.6 k/uL (0-1.0); Monocytes % (A) 7 %; Neutrophils # (A) 6.9 k/uL (1.3-7.7); Neutrophils % (A) 70 %; Platelet Count 319 k/uL (150-450); RBC 5.03 m/uL (4.30-5.90); RDW 13.6 % (11.5-15.5); WBC 9.8 k/uL (3.8-10.6)
[2020-02-24 07:59] LABS: African American GFR (CKD) >90 (>60 ml/min/1.73 sqM); Anion Gap 6 mmol/L; Blood Urea Nitrogen 18 mg/dL (9-20); Calcium 8.6 mg/dL (8.4-10.2); Carbon Dioxide 28 mmol/L (22-30); Chloride 106 mmol/L (98-107); Cholesterol 107 mg/dL (<200); Glucose 110 mg/dL (74-99); HDL Cholesterol 27 mg/dL (40-60); LDL Cholesterol,Calculated 49 mg/dL (0-99); Non-African American GFR(CKD) >90 (>60 ml/min/1.73 sqM); Potassium 4.2 mmol/L (3.5-5.1); Sodium 140 mmol/L (137-145); Triglycerides 154 mg/dL (<150)
[2020-02-24] MEDS ORDERED: SERTRALINE 100 MG TAB PO SCH (09:00)
[2020-02-24] MEDS ORDERED: FARXIGA 5 MG PO SCH (09:00)
[2020-02-24] MEDS ORDERED: SODIUM CHLORIDE 0.9% 1,000 ML IV SCH (09:00)
[2020-02-24] MEDS ORDERED: NON FORMULARY DRUG (Aspirin Ec 81 MG Tablet.Dr) PO SCH (09:00)
[2020-02-24] MEDS ORDERED: ASPIRIN 325 MG TAB PO SCH (09:00)
[2020-02-24] MEDS: SPIRONOLACTONE 25 MG TAB PO SCH (09:25)
[2020-02-24] MEDS: FUROSEMIDE 20 MG TAB PO SCH (09:25)
[2020-02-24] MEDS: metFORMIN 500 MG TAB PO SCH ×2 (09:25→20:21)
[2020-02-24] MEDS: METOPROLOL TARTRATE 25 MG TAB PO SCH ×2 (09:25→20:21)
[2020-02-24] MEDS: ASCORBIC ACID 500 MG TAB PO SCH (09:25)
[2020-02-24] MEDS: MULTIVITAMINS, THERA 1 EACH TAB PO SCH (09:25)
[2020-02-24] MEDS: ASPIRIN 81 MG PO SCH (09:26)
[2020-02-24] MEDS: lisinopriL 5 MG TAB PO SCH (09:26)
[2020-02-24] MEDS: ATORVASTATIN 20 MG TAB PO SCH (09:26)
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
--- NOTE | 2020-02-24 11:36 | ECHOF ---
Referral Reason:near syncope MEASUREMENTS -------- HEIGHT: 175.3 cm WEIGHT: 93.9 kg BP: 107/69 IVSd: 1.3 cm (0.6 - 1.1) LVIDd: 5.3 cm (3.9 - 5.3) LVPWd: 1.3 cm (0.6 - 1.1) EDV(Teich): 133 ml IVSs: 1.4 cm LVIDs: 4.2 cm LVPWs: 1.8 cm %IVS Thck: 6 % ESV(Teich): 77 ml EF(Teich): 42 % %FS: 21 % SV(Teich): 55 ml RVIDd: 2.9 cm (< 3.3) LALs A4C: 5.6 cm LAAs A4C: 20.0 cm LAESV A-L A4C: 61 ml LAESV MOD A4C: 56 ml LALs A2C: 5.8 cm LAAs A2C: 19.2 cm LAESV A-L A2C: 54 ml LAESV MOD A2C: 51 ml LAESV(A-L): 58 ml LAESV Index (A-L): 27.65 ml/m Ao Diam: 3.8 cm (2.0 - 3.7) AV Cusp: 2.6 cm (1.5 - 2.6) EPSS: 1.3 cm MV E Chandan: 0.49 m/s MV DecT: 234 ms MV Dec Barrow: 2.1 m/s MV A Chandan: 0.77 m/s MV E/A Ratio: 0.63 MV PHT: 68 ms AR Vmax: 3.26 m/s AR maxP.62 mmHg AR PHT: 868 ms AR Dec Time: 2992 ms AR Dec Barrow: 1.1 m/s TR Vmax: 2.05 m/s TR maxP.80 mmHg RAP: 5.00 mmHg RVSP: 21.80 mmHg MV EF SLOPE: 139.23 mm/s (70 - 150) MV EXCURSION: 19.91 mm (> 18.000) FINDINGS -------- Sinus rhythm. This was a technically adequate study. The left ventricular size is normal. Overall left ventricular systolic function is mildly impaired with, an EF between 45 - 50 %. The diastolic filling pattern is normal for the age of the patient 9 .35. The right ventricle is normal in size. The left atrial size is normal. Normal LA size by volume 22+/-6 ml/m2. The right atrial size is normal. Trace to mild aortic regurgitation. Mild mitral regurgitation is present. Mild tricuspid regurgitation present. Right ventricular systolic pressure is normal at < 35 mmHg. There is no pulmonic regurgitation present. The aortic root size is normal. There is no pericardial effusion. CONCLUSIONS -------- 1. The left ventricular size is normal. 2. The diastolic filling pattern is normal for the age of the patient 9.35 3. The right ventricle is normal in size. 4. The left atrial size is normal. 5. Normal LA size by volume 22+/-6 ml/m2. 6. The right atrial size is normal. 7. Trace to mild aortic regurgitation. 8. Mild mitral regurgitation is present. 9. Mild tricuspid regurgitation present. 10. There is no pulmonic regurgitation present. 11. There is no pericardial effusion. RESOURCE DIRECTOR: Estrella Chapman RDCS
[2020-02-24 12:39] LABS: Glucose,Whole Blood 95 mg/dL (75-99)
--- NOTE | 2020-02-24 15:58 | PN ---
PROGRESS NOTE DATE OF SERVICE: 02/24/2020 This 64-year-old gentleman, admitted with chest pain and syncope, has found to be in mildly orthostatic hypotension. Cardiology saw the patient and recommended one liter of IV fluids. A 2D echo with Doppler was done which showed ejection fraction about 45% to 50% and minimal valvular abnormalities. No chest pain. No palpitations. No fever. PHYSICAL EXAMINATION: Alert and oriented x3. Pulse is 74, blood pressure 116/78. Minimal orthostatic changes. Respiration 20, temperature 97.8, pulse ox 96% on room air. HEENT: Conjunctivae normal. NECK: No jugular venous distention. CARDIOVASCULAR SYSTEM: S1, S2 muffled. RESPIRATORY SYSTEM: Breath sounds diminished at the bases. No rhonchi. No crackles. ABDOMEN: Soft, non-tender. LEGS: No edema. No swelling. NERVOUS SYSTEM: No focal deficit. LABS: CBC and BMP noted. ASSESSMENT: 1. Chest pain, possible unstable angina. 2. Syncope, possibly cardiogenic, possibly orthostatic hypotension. 3. History of congestive heart failure, ejection fraction 45% to 50%, with chronic systolic dysfunction. 4. Diabetes mellitus, type 2. 5. Hypertension. 6. Hyperlipidemia. 7. History of degenerative joint disease. 8. History of cardiac ablation. 9. Remote history of nicotine dependence. 10.FULL CODE. RECOMMENDATIONS AND DISCUSSION: I recommend to continue current medications, continue with the monitoring, symptomatic treatment. Otherwise, closely follow with Cardiology. Chest CTA was noted; it showed no evidence of pulmonary embolism. Atelectasis at the bases was noted. I would also recommend a chest x-ray to evaluate the fluid situation as well in the morning. Otherwise, increase ambulation. Further recommendations to follow. MMODL / IJN: [id number] /
[2020-02-24 17:21] LABS: Glucose,Whole Blood 90 mg/dL (75-99)
[2020-02-24 20:04] LABS: Glucose,Whole Blood 112 mg/dL (75-99)
[2020-02-25 06:55] LABS: Glucose,Whole Blood 115 mg/dL (75-99)
[2020-02-25] MEDS: PANTOPRAZOLE 40 MG TABLET PO SCH (06:55)
[2020-02-25 08:09] VITALS: BP 126/79; PULSE 96; RESP 18; TEMP 97.8
[2020-02-25] MEDS: lisinopriL 5 MG TAB PO SCH (08:09)
[2020-02-25] MEDS: ASPIRIN 81 MG PO SCH (08:10)
[2020-02-25] MEDS: MULTIVITAMINS, THERA 1 EACH TAB PO SCH (08:10)
[2020-02-25] MEDS: FUROSEMIDE 20 MG TAB PO SCH (08:10)
[2020-02-25] MEDS: ATORVASTATIN 20 MG TAB PO SCH (08:10)
[2020-02-25] MEDS: SPIRONOLACTONE 25 MG TAB PO SCH (08:10)
[2020-02-25] MEDS: metFORMIN 500 MG TAB PO SCH (08:10)
[2020-02-25] MEDS: METOPROLOL TARTRATE 25 MG TAB PO SCH (08:10)
[2020-02-25] MEDS: ASCORBIC ACID 500 MG TAB PO SCH (08:10)
[2020-02-25 08:36] LABS: Basophils % (A) 0 %; Eosinophils # (A) 0.2 k/uL (0-0.7); Eosinophils % (A) 2 %; HCT 44.6 % (39.0-53.0); HGB 14.3 gm/dL (13.0-17.5); Lymphocytes # (A) 2.1 k/uL (1.0-4.8); Lymphocytes % (A) 24 %; MCH 26.9 pg (25.0-35.0); MCHC 32.1 g/dL (31.0-37.0); MCV 83.8 fL (80.0-100.0); Mean Platelet Volume 6.7; Monocytes # (A) 0.4 k/uL (0-1.0); Monocytes % (A) 4 %; Neutrophils # (A) 6.3 k/uL (1.3-7.7); Neutrophils % (A) 69 %; Platelet Count 345 k/uL (150-450); RBC 5.32 m/uL (4.30-5.90); RDW 13.6 % (11.5-15.5); WBC 9.1 k/uL (3.8-10.6)
[2020-02-25 08:45] LABS: African American GFR (CKD) >90 (>60 ml/min/1.73 sqM); Anion Gap 8 mmol/L; Blood Urea Nitrogen 15 mg/dL (9-20); Calcium 8.9 mg/dL (8.4-10.2); Carbon Dioxide 26 mmol/L (22-30); Chloride 105 mmol/L (98-107); Glucose 119 mg/dL (74-99); Non-African American GFR(CKD) >90 (>60 ml/min/1.73 sqM); Potassium 4.5 mmol/L (3.5-5.1); Sodium 139 mmol/L (137-145)
--- NOTE | 2020-02-25 10:37 | XR ---
EXAMINATION TYPE: XR chest 1V portable DATE OF EXAM: 02/25/2020 COMPARISON: Prior chest x-ray 05/05/2019 HISTORY: Congestive heart failure TECHNIQUE: Single frontal view of the chest is obtained. FINDINGS: Lung volumes are low and the patient is rotated. There are overlying cardiac leads. There i s no focal air space opacity, pleural effusion, or pneumothorax seen. The cardiac silhouette size is within normal limits. The osseous structures are intact. IMPRESSION: No acute process. Expiratory rotated exam, follow-up as indicated.
--- NOTE | 2020-02-25 10:56 | P.PN ---
Subjective HISTORY OF PRESENTING ILLNESS This is a pleasant 64-year-old male past medical history significant for nonischemic cardiomyopathy, dyslipidemia, history of ventricular tachycardia status post ablation, chronic systolic and diastolic heart failure, diabetes mellitus and former nicotine dependence. He underwent cardiac catheterization May 2019 secondary to an abnormal stress test revealing mild nonobstructive coronary artery disease. He follows in the office with Dr. Vazquez. He is seen and examined sitting up in bed eating breakfast in no acute distress. He has had no further symptoms of dizziness or near syncope since arriving at the hospital. He has no chest pain, shortness of breath, dizziness or palpitations. Telemetry tracings reveal frequent PVCs at times in couplets. No significant pauses or sustained arrhythmias noted. Echocardiogram reveals mildly impaired LV systolic function with ejection fraction 45-50% mild MR and mild TR. Blood pressure 126/79 heart rate 96 afebrile maintaining oxygen saturation on room air. PHYSICAL EXAMINATION CONSTITUTIONAL: No apparent distress. HEENT: Head is normocephalic. Pupils are equal, round. Sclerae anicteric. Mucous membranes of the mouth are moist. No JVD. No carotid bruit. CHEST EXAMINATION: Lungs are clear to auscultation. No chest wall tenderness is noted on palpation or with deep breathing. HEART EXAMINATION: Regular rate and rhythm. S1, S2 heard. No murmurs, gallops or rub. EXTREMITIES: 2+ peripheral pulses, no lower extremity edema and no calf tend erness. ASSESSMENT Near syncope Nonischemic cardiomyopathy Chronic systolic and diastolic heart failure, clinically euvolemic Hypertension Dyslipidemia Diabetes mellitus History of nonsustained ventricular tachycardia status post successful ablation, arrhythmia rendered noninducible PLAN Stable for discharge from a cardiac perspective. Event monitor has been applied with reports going to Dr. Vazquez. Follow-up with Dr. Vazquez in the office in 2-3 weeks. Nurse Practitioner note has been reviewed, I agree with a documented findings and plan of care. Patient was seen and examined. Objective - Vital Signs Vital signs: Vital Signs Temp 97.8 F 02/25/20 08:08 Pulse 96 02/25/20 09:00 Resp 18 02/25/20 09:00 BP 126/79 02/25/20 08:08 Pulse Ox 95 02/25/20 08:08 Intake & Output 02/24/20 02/25/20 02/25/20 18:59 06:59 18:59 Intake Total 600 240 Balance 600 240 Intake: Oral 600 240 Other: Voiding Method Toilet Toilet Toilet # Voids 2 1 1 - Labs CBC & Chem 7: 02/25/20 08:00 02/25/20 08:00 Labs: Abnormal Lab Results - Last 24 Hours (Table) 02/24/20 02/25/20 02/25/20 Range/Units 20:03 06:54 08:00 Creatinine 0.64 L (0.66-1.25) mg/dL Glucose 119 H (74-99) mg/dL POC Glucose (mg/dL) 112 H 115 H (75-99) mg/dL
== END 2020-02-25 12:42 | disposition home or self-care (01) ==
LOC: EC 15:18 → 3NCARDOBS 17:51
PROVIDERS: ADMIT Hospitalist; ATTEND Hospitalist
DX: R07.89 Other chest pain (principal); I95.1 Orthostatic hypotension; R55 Syncope and collapse; I42.8 Other cardiomyopathies; I08.0 Rheumatic disorders of both mitral and aortic valves; I25.10 Atherosclerotic heart disease of native coronary artery without angina pectoris; I11.0 Hypertensive heart disease with heart failure; I50.42 Chronic combined systolic (congestive) and diastolic (congestive) heart failure; E11.9 Type 2 diabetes mellitus without complications; E78.5 Hyperlipidemia, unspecified; M19.90 Unspecified osteoarthritis, unspecified site; D64.9 Anemia, unspecified; Z98.42 Cataract extraction status, left eye; Z98.41 Cataract extraction status, right eye; Z98.890 Other specified postprocedural states; Z87.891 Personal history of nicotine dependence; Z82.49 Family history of ischemic heart disease and other diseases of the circulatory system; Z83.518 Family history of other specified eye disorder; I25.2 Old myocardial infarction; I49.3 Ventricular premature depolarization; Z79.84 Long term (current) use of oral hypoglycemic drugs; Z79.82 Long term (current) use of aspirin; Z79.899 Other long term (current) drug therapy; Z91.030 Bee allergy status
CPT/HCPCS: 93005 ×2; 96360; 96361; 99285; 36415; 93306; 93270; 85379; 80061; 80053; 80048 ×2; 83735; 84484; 85025 ×3; 85610; 85730; 71045; 71275; G0378 ×3; Q9967

== ENCOUNTER → 2020-03-23 | Outpatient (CLI) | payer MEDICARE ==
[2020-03-23 11:50] LABS: HCT 47.9 % (39.0-53.0); HGB 15.1 gm/dL (13.0-17.5); MCH 27.6 pg (25.0-35.0); MCHC 31.4 g/dL (31.0-37.0); MCV 87.9 fL (80.0-100.0); Mean Platelet Volume 6.8; Platelet Count 364 k/uL (150-450); RBC 5.45 m/uL (4.30-5.90); WBC 9.7 k/uL (3.8-10.6)
[2020-03-23 11:59] LABS: African American GFR (CKD) >90 (>60 ml/min/1.73 sqM); Anion Gap 11 mmol/L; Blood Urea Nitrogen 17 mg/dL (9-20); Carbon Dioxide 27 mmol/L (22-30); Chloride 100 mmol/L (98-107); Non-African American GFR(CKD) >90 (>60 ml/min/1.73 sqM); Potassium 4.7 mmol/L (3.5-5.1); Sodium 138 mmol/L (137-145)
== END | disposition home or self-care (01) ==
LOC: LABPAT 09:47
PROVIDERS: ATTEND Internal Medicine Clinical Cardiac Electrophysiology
DX: Z01.818 Encounter for other preprocedural examination (principal); I42.0 Dilated cardiomyopathy; I47.2 Ventricular tachycardia; R53.83 Other fatigue; R55 Syncope and collapse
CPT/HCPCS: 36415; 80051; 82565; 84443; 84520; 85027

== ENCOUNTER 2020-03-30 06:52 | Day surgery (SDC) | payer MEDICARE ==
[2020-03-27 12:03] VITALS: BMI 30.9
[~2020-03-30 06:52] MED LIST changes: -DEXAMETHASONE SOD PHOSPHATE 10 MG/ML 1 ML VIAL IV ONE; -HYDROmorphone 0.5 MG/0.5 ML SYRINGE IVP PRN; -LIDOCAINE 1% 20 ML VIAL (10MG/ML) FOR IV START INTRADERMA PRN; -MIDAZOLAM 2 MG/2 ML VIAL IV PRN; -ONDANSETRON 4 MG/2 ML VIAL IVP ONE; -SCOPOLAMINE 1.5MG/72HR PATCH TRANSDERM ONE; +SODIUM CHLORIDE 0.9% 1,000 ML IV SCH
[2020-03-30] MEDS ORDERED: SODIUM CHLORIDE 0.9% 1,000 ML IV ONE (07:11)
[2020-03-30 07:17] LABS: Glucose,Whole Blood 137 mg/dL (75-99)
[2020-03-30] MEDS ORDERED: LIDOCAINE 1% INJ 10MG/ML (20 ML MDV) ONE ×3 (08:19→11:13)
[2020-03-30] MEDS ORDERED: fentaNYL (PF) 50 MCG/ML 2 ML AMP ONE (08:22)
[2020-03-30] MEDS ORDERED: PROPOFOL 10 MG/ML 20 ML VIAL IV ONE (08:22)
[2020-03-30] MEDS ORDERED: MIDAZOLAM 2 MG/2 ML VIAL ONE (08:22)
[2020-03-30] MEDS ORDERED: LIDOCAINE URO-JET JELLY 2% 5 ML KIT ONE (08:36)
[2020-03-30] MEDS ORDERED: LIDOCAINE 1% INJ 10MG/ML (20 ML MDV) SQ ONE ×3 (08:59→11:36)
[2020-03-30] MEDS ORDERED: LACTATED RINGERS 1,000 ML IV ONE (10:20)
[2020-03-30] MEDS ORDERED: ceFAZolin 1,000 MG in SODIUM CHLORIDE 0.9% IRRIGATIO 250 ML IRRIGATION ONE (10:25)
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
[2020-03-30] MEDS ORDERED: IOPAMIDOL-370 50ML BTL INJ ONE (11:05)
--- NOTE | 2020-03-30 11:44 | CE ---
CARDIAC ELECTROPHYSIOLOGY REPORT This is a 64-year-old male patient of Dr. Vazquez who had a syncopal spell while driving there was witnessed by his . Event monitor showed nonsustained ventricular tachycardia. He is brought in for diagnostic EP study. He has a reduced LV systolic function of about 45%. Previously he has undergone an EP study and VT ablation of ventricular tachycardia originating from the lateral wall of the left ventricle several years back. At that time, no other ventricular tachycardia was inducible. The patient is brought to the EP lab in a fasting state. Written informed consent was obtained prior to the procedure. The left shoulder area was prepped and draped as per protocol. This venous sheaths were placed in the right and left femoral veins and via these, diagnostic mapping and ablation catheters were placed. First the diagnostic catheters were placed in the high right atrium, coronary sinus and the HIS bundle area. Sinus cycle length 700 milliseconds. The ND interval 189 milliseconds, QRS 106 milliseconds and QT 361 milliseconds. AH interval 91 milliseconds, HV interval 37 milliseconds. Sinus node recovery times at a paced cycle length of 600 milliseconds were 993 milliseconds. AV node Wenckebach block 310 milliseconds, VA Wenckebach block 420 milliseconds. Burst stimulation from the right ventricle was performed and ventricular tachycardia was easily induced. The VT rate was 234 beats per minute. This had a left bundle branch block morphology with transition in V3. Initially we started mapping this tachycardia and the intracardiac echo catheter was placed and the right ventricle was mapped. The scar mapping of the right ventricle was performed and pace mapping of the VT was performed in the right ventricle. However, the pace maps were suboptimal. EP study was continued once again to induce the VT for activation mapping. However, we induced LV VT with a QR pattern in lead V1 consistent with VT from the aortomitral continuity. This was again nonsustained episodes long nonsustained very long and this was once again a sustained episode was spontaneously terminated. The stimulation was continued and a third ventricular tachycardia was induced with a totally different morphology again originating from the left ventricle, VT degenerated into ventricular flutter forward/ventricular fibrillation. This was sustained episode but it spontaneously terminated without just before we were performing electrical defibrillation externally. At this point, decision made not to proceed with an EP study, but instead to proceed with an ICD and medical treatment with sotalol for suppression of ventricular tachycardia and ventricular fibrillation induced with associated by syncope. The patient does have a mild cardiomyopathy. Previously, his MRI has been normal without any evidence for delayed enhancement. I had a discussion with the . We have already discussed this option with the patient in the past. I did talk to the patient also and will proceed with a dual- chamber ICD along with sotalol therapy. ALEM / JOE: [id number] /
[2020-03-30] MEDS ORDERED: HYDROcodone/APAP 5-325MG 1 EACH TAB PO PRN (12:45)
[2020-03-30] MEDS ORDERED: ACETAMINOPHEN TAB 325 MG TAB PO PRN (12:45)
[2020-03-30] MEDS ORDERED: ACETAMINOPHEN IV (For NPO) 1,000 MG in EMPTY BAG 1 BAG IVPB ONE (13:30)
--- NOTE | 2020-03-30 14:41 | CE ---
CARDIAC ELECTROPHYSIOLOGY REPORT Mr. Seven King is a 64-year-old male patient who underwent a diagnostic EP study and this revealed multiple different ventricular tachycardias, which degenerated into ventricular fibrillation. A dual-chamber ICD was recommended and along with sotalol therapy. Patient brought to the EP lab in a fasting state. Written informed consent was obtained prior to the procedure. The left shoulder area was prepped and draped as per protocol. 1% lidocaine was used for local anesthesia. A 4 cm incision was made parallel to the deltopectoral groove, about 1.5 cm medial to it. The incision was carried down to the level of the pectoralis muscle. A subfascial pocket was made. Hemostasis was assured. The left axillary vein was accessed at 2 separate points under fluoroscopy and via appropriately-sized introducer sheaths. Two leads were positioned in the right heart. The atrial lead was a [employer], model #2088TC, 52 cm and serial #[id number]. This lead was positioned in the right atrial appendage and screwed in. The P waves were full 3.6 mV pacing impedance 940 ohms, pacing threshold 1 V at 0.5 milliseconds 10 V test negative. The ICD lead was a [employer] 58 cm model number and the a [id number], serial number [id number] in the [employer] [id number]. The R- waves were 11.5 mV, pacing impedance 980 ohms pacing threshold 0.5 V at 0.5 milliseconds 10 V test negative. Both leads were secured to the underlying pectoralis muscle. This is a using 2 nonabsorbable sutures. Pocket was irrigated with antibiotic solution leads connected to the generator. The generator [employer] [id number] serial #[id number]. The leads and generator were then placed in subfascial pocket. The wound was closed in 3 layers and dressed per protocol. RESULTS: Successful dual-chamber ICD implantation for secondary prevention of sudden cardiac . The patient has had a syncope associated with ventricular tachycardia. He has inducible ventricular multiple ventricular tachycardia as well as atrial fibrillation. DFT TESTING UNDER ANESTHESIA: A DC fib shock was used to induce ventricular fibrillation. This was adequately and appropriately detected at least sensitivity and successfully internally defibrillated with a 10-joule shock charge time. Charge time 1.5 seconds, shock impedance 80 ohms, no post shock noise. CATHETER TOTAL CONFIGURATION: The device then programmed according to the mid-LAD programming with appropriate antitachycardia pacing, cardioversion defibrillation, pacing at a DDD 50 bpm with long AV delay to avoid RV pacing. PLAN: Start sotalol 80 mg twice daily. In addition to metoprolol. Continue all other cardiac medications. ALEM / JOE: [id number] /
--- NOTE | 2020-03-30 17:02 | XR ---
EXAMINATION TYPE: XR chest 1V portable DATE OF EXAM: 03/30/2020 Comparison: 02/25/2020 Clinical History: 64-year-old male Lead placement check Findings: Left anterior chest wall ICD generator with right atrial and right ventricular leads. Heart upper doyle its of normal in size. Bony vasculature and aorta within normal limits. No consolidation or pleural e ffusion. The mild subcutaneous emphysema below the left clavicle likely from the patient's procedure. Impression: Left-sided 2-lead AICD generator. No acute cardiopulmonary process.
[2020-03-30] MEDS: SOTALOL 80 MG TAB PO SCH ×2 (17:08→22:19)
[2020-03-30 21:08] LABS: Glucose,Whole Blood 152 mg/dL (75-99)
[2020-03-30] MEDS: metFORMIN 500 MG TAB PO SCH (21:09)
[2020-03-30] MEDS: METOPROLOL TARTRATE 25 MG TAB PO SCH (21:40)
[2020-03-31 06:38] LABS: Glucose,Whole Blood 137 mg/dL (75-99)
--- NOTE | 2020-03-31 07:46 | P.DS ---
Providers Attending physician: Blanco Kumar Primary care physician: [facility] Course: Patient is doing well. He is a little sore at the ICD site but otherwise he has no other symptoms he denies any chest discomfort no protein chest discomfort most soreness in the throat no dizziness lightheadedness or palpitations On examination he is afebrile 98.2F pulse rate in the 60s blood pressure 121/75 mmHg Breath sounds are clear no rhonchi no crackles Normal heart sounds normal S1 normal S2 no murmurs or gallops or rub Breath sounds are clear Abdomen is soft nontender Extremities warm No bruising minimal swelling over the ICD site Impression History of syncope while driving History of nonsustained ventricular tachycardia Past history of ventricular tachycardia status post ablation several years back and he was noninducible for any other VT at that time Yesterday he underwent a diagnostic EP study and multiple ventricular tachycardias induced. One of them degenerates into ventricular fibrillation but it terminated spontaneously before he could be defibrillated A dual-chamber ICD was implanted for secondary prevention of sudden cardiac Metoprolol was continued Sotalol 80 mg twice daily was added Other cardio myopathy medications continue Plan Chest x-ray is within normal limits no pneumothorax Antibiotics complete Elevated for device interrogation today and thereafter he'll be discharged home and follow-up in the office in the device clinic in one week in follow-up with Dr. Schmidt in about 3 weeks Plan - Discharge Summary Discharge Rx Participant: No New Discharge Prescriptions: New RX: Sotalol [Betapace] 80 mg PO BID #180 tablet No Action RX: Multivitamin [Men's Multi-Vitamin] 1 tab PO DAILY RX: Spironolactone [Aldactone] 25 mg PO DAILY #30 tab RX: Aspirin EC [Ecotrin Low Dose] 81 mg PO DAILY #30 tablet. RX: Metoprolol Tartrate [Lopressor] 25 mg PO BID RX: Furosemide [Lasix] 20 mg PO DAILY RX: Dapagliflozin Propanediol [Farxiga] 5 mg PO DAILY RX: lisinopriL [Zestril] 5 mg PO DAILY RX: Sertraline [Zoloft] 100 mg PO DAILY RX: metFORMIN HCL 1,000 mg PO BID RX: Atorvastatin [Lipitor] 20 mg PO DAILY RX: Ascorbic Acid [Vitamin C] 1,000 mg PO DAILY Discharge Medication List RX: Multivitamin [Men's Multi-Vitamin] 1 tab PO DAILY 06/26/16 [History] RX: Aspirin EC [Ecotrin Low Dose] 81 mg PO DAILY #30 tablet. 12/06/15 [Rx] RX: Spironolactone [Aldactone] 25 mg PO DAILY #30 tab 12/06/15 [Rx] RX: Furosemide [Lasix] 20 mg PO DAILY 05/30/16 [History] RX: Metoprolol Tartrate [Lopressor] 25 mg PO BID 05/30/16 [History] RX: Dapagliflozin Propanediol [Farxiga] 5 mg PO DAILY 05/05/19 [History] RX: lisinopriL [Zestril] 5 mg PO DAILY 05/05/19 [History] RX: Ascorbic Acid [Vitamin C] 1,000 mg PO DAILY 02/23/20 [History] RX: Atorvastatin [Lipitor] 20 mg PO DAILY 02/23/20 [History] RX: Sertraline [Zoloft] 100 mg PO DAILY 02/23/20 [History] RX: metFORMIN HCL 1,000 mg PO BID 02/23/20 [History] RX: Sotalol [Betapace] 80 mg PO BID #180 tablet 03/30/20 [Rx] Follow up Appointment(s)/Referral(s): Luke Vazquez MD [STAFF PHYSICIAN] - 1 Week Activity/Diet/Wound Care/Special Instructions: PATIENT EDUCATION MATERIAL Instructions following a heart rhythm device implant. 1. Keep dressing DRY for 5 DAYS. You may cover the area with Saran or Cling Wrap, prior to a shower. 2. The dressing will be removed in the Device Clinic at [facility]. Absorbable sutures were used to close the wound. 3. Avoid raising the left arm above the shoulder level. 4 week restriction 4. Avoid arm movements, like backscratching, rubbing the head, or pulling on a cord. 4 weeks restriction 5. Gentle range of motion movements of the shoulder, closest to the incision should be performed to avoid a frozen shoulder. (Pendulum exercises of the shoulder) 6. The opposite arm may be used freely. 7. Avoid driving for 7 days. 8. Avoid activities such as golfing, swimming, weed whacking, lifting more than 10 pounds weight, bowling, gymnastics and weight training/lifting. (6 weeks restriction) 9. Activities such as wood chopping with an axe, pull-ups in the gymnasium, power lifting, arc-welding, being close to home induction cooktops will always be a problem. 10. Arm sling is only a reminder not to raise the arm above the head. You do not need to keep the arm completely immobilized. Your free to move the arm and use it and for normal activities. In case of any problems, please call [facility], [place], @ [phone], Attention: Device Clinic Device clinic follow-up in 7 days Follow-up with primary healthcare management in 2-3 weeks Medication Sotalol 80 mg twice daily continue other medications as before Discharge Disposition: HOME SELF-CARE
[2020-03-31] MEDS ORDERED: SPIRONOLACTONE 25 MG TAB PO SCH (09:00)
[2020-03-31] MEDS ORDERED: lisinopriL 5 MG TAB PO SCH (09:00)
[2020-03-31] MEDS ORDERED: ASPIRIN 81 MG PO SCH (09:00)
[2020-03-31] MEDS ORDERED: FUROSEMIDE 20 MG TAB PO SCH (09:00)
[2020-03-31] MEDS ORDERED: ATORVASTATIN 20 MG TAB PO SCH (09:00)
[2020-03-31] MEDS: SOTALOL 80 MG TAB PO SCH (10:00)
[2020-03-31] MEDS: metFORMIN 500 MG TAB PO SCH (10:00)
[2020-03-31] MEDS: METOPROLOL TARTRATE 25 MG TAB PO SCH (10:00)
[2020-03-31 10:33] VITALS: BP 133/69; PULSE 82; RESP 16; TEMP 97.8
== END 2020-03-31 12:22 | disposition home or self-care (01) ==
LOC: CATHEP 06:52 → 3NCARDOBS 12:44 → CATHEP 03-31 12:22
PROVIDERS: ATTEND Internal Medicine Clinical Cardiac Electrophysiology
DX: I49.01 Ventricular fibrillation (principal); I47.2 Ventricular tachycardia; R55 Syncope and collapse; I42.0 Dilated cardiomyopathy; I47.1 Supraventricular tachycardia; E78.49 Other hyperlipidemia; Z72.0 Tobacco use; Z79.84 Long term (current) use of oral hypoglycemic drugs; Z79.82 Long term (current) use of aspirin; Z79.899 Other long term (current) drug therapy
CPT/HCPCS: 33249; 93620; 71045; C1894; C1769 ×2; C1892; C1730 ×2; C1898; C1759; C1893; C1721; C1777; C1732; J2250; J0690; J2001; J3010; J2704; Q9967

== ENCOUNTER → 2020-07-12 | Outpatient (CLI) | payer MEDICARE ==
[2020-07-12 19:29] LABS: HCT 48.5 % (39.6-50.0); HGB 15.6 g/dL (13.0-17.0); MCH 27.6 pg (27.0-32.0); MCHC 32.2 g/dL (32.0-37.0); MCV 85.7 fL (80.0-97.0); Mean Platelet Volume 9.4 fL (9.5-12.2); Platelet Count 389 X 10*3/uL (140-440); RBC 5.66 X 10*6/uL (4.40-5.60); RDW 13.5 % (11.5-14.5); WBC 8.43 X 10*3/uL (4.50-10.00)
[2020-07-13 01:42] LABS: African American GFR (CKD) 102.8 (60.0-200.0); Anion Gap 15.1 mmol/L (4.00-12.00); BUN/Creat Ratio 23.33 Ratio (12.00-20.00); Calcium 10.1 mg/dL (8.7-10.3); Carbon Dioxide 25.9 mmol/L (21.6-31.8); Non-African American GFR(CKD) 88.7 (60.0-200.0); Potassium 4.3 mmol/L (3.5-5.5)
== END | disposition home or self-care (01) ==
LOC: LABWHC1 15:20
PROVIDERS: ATTEND Internal Medicine Cardiovascular Disease
DX: I48.0 Paroxysmal atrial fibrillation (principal); I42.0 Dilated cardiomyopathy; I47.2 Ventricular tachycardia
CPT/HCPCS: 36415; 80048; 84443; 85027

== ENCOUNTER → 2021-07-20 | Outpatient (CLI) | payer MEDICARE ==
[2021-07-20 14:37] LABS: ALT 22 U/L (10-49); AST 14 U/L (14-35); Chol/HDL Ratio 4.07 Ratio; LDL Cholesterol,Calculated 46.5 mg/dL (0.0-131.0)
== END | disposition home or self-care (01) ==
LOC: LABWHC1 09:55
PROVIDERS: ATTEND Nurse Practitioner Family
DX: I50.22 Chronic systolic (congestive) heart failure (principal); I48.0 Paroxysmal atrial fibrillation; I47.2 Ventricular tachycardia; I42.0 Dilated cardiomyopathy
CPT/HCPCS: 36415; 80061; 84450; 84460

== ENCOUNTER → 2022-08-27 | Outpatient (CLI) | payer MEDICARE ==
[2022-08-27 21:03] LABS: Gliadin AB IgA, Deaminated NEGATIVE (NEGATIVE); Gliadin AB IgA, Unit <0.2 U/mL; Gliadin AB IgG, Deaminated NEGATIVE (NEGATIVE); Gliadin AB IgG, Unit <0.4 U/mL
== END | disposition home or self-care (01) ==
LOC: LABWHC1 11:10
PROVIDERS: ATTEND Nurse Practitioner Family
DX: K52.9 Noninfective gastroenteritis and colitis, unspecified (principal)
CPT/HCPCS: 36415; 83516; 85652; 86140

== ENCOUNTER → 2023-07-16 | Outpatient (CLI) | payer MEDICARE ==
[2023-07-16 12:02] LABS: NT-Pro-B-Type Natriuretic Pept 141 pg/mL
[2023-07-16 12:09] LABS: ALT 70 U/L (4-49); AST 45 U/L (17-59); African American GFR (CKD) >90 (>60 ml/min/1.73 sqM); Anion Gap 11 mmol/L; Blood Urea Nitrogen 17 mg/dL (9-20); Calcium 9.2 mg/dL (8.4-10.2); Carbon Dioxide 26 mmol/L (22-30); Chloride 100 mmol/L (98-107); Glucose 123 mg/dL (74-99); Non-African American GFR(CKD) 89 (>60 ml/min/1.73 sqM); Potassium 4.7 mmol/L (3.5-5.1); Sodium 137 mmol/L (137-145)
[2023-07-16 16:14] LABS: Chol/HDL Ratio 3.35 Ratio; LDL Cholesterol,Calculated 17.1 mg/dL (0.0-131.0)
== END | disposition home or self-care (01) ==
LOC: LABWHC1 09:42
PROVIDERS: ATTEND Internal Medicine Cardiovascular Disease
DX: E78.2 Mixed hyperlipidemia (principal)
CPT/HCPCS: 36415; 80048; 80061; 83880; 84450; 84460

== ENCOUNTER 2023-12-10 06:00 | Day surgery (SDC) | payer MEDICARE ==
[2023-12-10 06:36] VITALS: RESP 16; TEMP 97.1
[2023-12-10] MEDS: IV FLUID CONTINUATION 1,000 ML IV ONE (06:41)
[2023-12-10] MEDS: LIDOCAINE 1% (10MG/ML) FOR IV START INTRADERMA ONE (06:41)
[2023-12-10] MEDS: LACTATED RINGERS 1,000 ML BAG IV ONE (06:41)
[2023-12-10 06:54] LABS: Glucose,Whole Blood 150 mg/dL (70-110)
[2023-12-10] MEDS ORDERED: PROPOFOL 10 MG/ML 20 ML VIAL IV ONE (07:00)
[2023-12-10] MEDS ORDERED: LIDOCAINE 1% INJ 10MG/ML (20 ML MDV) ONE (07:00)
--- NOTE | 2023-12-10 07:22 | P.PCN ---
Date of Procedure: 12/10/23 Procedure(s) Performed: Brief history: Patient is a pleasant 67-year-old white male scheduled for an elective upper endoscopy as well as colonoscopy as a part of evaluation of GERD and chronic diarrhea. Has been having 5-6 loose watery bowel movements daily but no blood or mucus in the stool. Procedure performed: Esophagogastroduodenoscopy with biopsy Colonoscopy with biopsy Preoperative diagnosis: GERD Chronic diarrhea Anesthesia: MAC Procedure: After informed consent was obtained from the patient was brought into the endoscopy unit and IV sedation was administered by anesthesia under continuous monitoring. Initially upper endoscopy was done. The Olympus GF 160 video endoscope was inserted inserted into the mouth and esophagus intubated without any difficulty and was gradually advanced into the stomach and duodenum and carefully examined. The bulb and second part of the duodenum appeared normal. Biopsies were done from the duodenum to rule out celiac disease. The scope was then withdrawn into the stomach adequately insufflated with air and upon careful examination the antrum had mild gastritis and biopsies were done from this area. Mucosa of the body, cardia and fundus appeared normal. The scope was then withdrawn into the esophagus. The GE junction was located at 40 cm to the incisors. It appeared regular with no erythema erosions or ulcerations. Rest of the esophagus appeared normal. Patient tolerated the procedure well. At this time the patient continued to remain sedation. Initial digital rectal examination was normal. Olympus CF 160 video colonoscope was then inserted into the rectum and gradually advanced to the cecum without any difficulty. Careful examination was performed as the scope was gradually being withdrawn. The prep was excellent. The cecum, ascending colon, transverse colon, descending colon, sigmoid colon and rectum appeared normal. In the sigmoid colon there was a 3 to 4 mm sessile polyp was removed by cold biopsy. Scattered left-sided diverticulosis seen. Biopsies were done from the ascending and descending colon to rule out microscopic/collagenous colitis. Retroflexion was performed in the rectum and no lesions were noted. Patient tolerated the procedure well. Impression: 1. Upper endoscopy revealed mild antral gastritis but no evidence of esophagitis or Ford's esophagus 2. Colonoscopy revealed 3 to 4 mm sigmoid colon polyp status post cold biopsy and scattered sigmoid diverticulosis Recommendations: Findings of this examination were discussed with the patient as well as his family. He was advised to follow-up with the biopsy results. Recommended repeat colonoscopy in 5 years. Follow-up in the office in 2 to 3 weeks.
[2023-12-10 07:35] LABS: Glucose,Whole Blood 139 mg/dL (70-110)
[2023-12-10 07:43] VITALS: BP 124/71; PULSE 56
== END 2023-12-10 07:55 | disposition home or self-care (01) ==
LOC: ORWHC2ENDO 06:00
PROVIDERS: ATTEND Internal Medicine Gastroenterology
DX: K52.9 Noninfective gastroenteritis and colitis, unspecified (principal); K57.30 Diverticulosis of large intestine without perforation or abscess without bleeding; K29.50 Unspecified chronic gastritis without bleeding; K63.5 Polyp of colon; E11.9 Type 2 diabetes mellitus without complications; I11.0 Hypertensive heart disease with heart failure; I50.9 Heart failure, unspecified; I49.9 Cardiac arrhythmia, unspecified; E78.5 Hyperlipidemia, unspecified; I48.91 Unspecified atrial fibrillation; M19.90 Unspecified osteoarthritis, unspecified site; Z79.84 Long term (current) use of oral hypoglycemic drugs; Z79.899 Other long term (current) drug therapy; Z79.83 Long term (current) use of bisphosphonates
CPT/HCPCS: 88305; 45380; 43239; J2001; J2704